=== PATIENT | male | born 1970 | race Two or more races ===

== ENCOUNTER 2021-05-30 20:42 | Emergency (ER) | payer OTHER ==
[~2021-05-30] VITALS: Ht 177.8 cm; Wt 100.0 kg
[2021-05-30] MEDS ORDERED: ACETAMINOPHEN/CODEINE 300-30 MG TABLET PO ONE (22:45)
[2021-05-31] MEDS ORDERED: ACET-2080 PO (00:37)
[2021-05-31] MEDS ORDERED: IBUP-1554 PO (00:37)
[2021-05-31 01:03] VITALS: BP 125/67
== END 2021-05-31 01:05 | disposition home or self-care (01) ==
LOC: EMS 20:48
DX: S92.152A Displaced avulsion fracture (chip fracture) of left talus, initial encounter for closed fracture (principal); S93.402A Sprain of unspecified ligament of left ankle, initial encounter; X50.1XXA Overexertion from prolonged static or awkward postures, initial encounter; Y93.89 Activity, other specified; Y92.89 Other specified places as the place of occurrence of the external cause; Y99.8 Other external cause status
CPT/HCPCS: 29515; 29540; 99283